=== PATIENT | female | born 1990 | race Caucasian/White ===

== ENCOUNTER → 2016-03-23 | Outpatient (CLI) | payer OTHER ==
[~2016-03-23] MED LIST: AMOXICILLIN500 M2 PO; ANAPROX DS550 MG PO; AUGMENTIN 875875 MG PO; BACTRIM DS 8001 TAB PO; CELEXA20 MG PO; CLARITIN10 MG PO; COLACE100 MG PO; DOCUSATE SODIU100 MG PO; FE-40325 MG PO; FEOSOL300 MG PO; FLONASE ALLERG9.9 ML NAS; IBUPROFEN600 MG PO; METROGEL0.751 VG; NORCO 325 MG-51 TAB PO; PREDNICOT20 MG PO; PREDNISONE10 MG PO; PRENATAL1 TA1 PO; PROAIR HFA0.09 MG/AC IH; ROBITUSSIN AC 110 ML PO; ROBITUSSIN AC,G30 ML PO; TOPIRAMATE25 M3 PO; TRAMADOL HCL50 MG PO; ULTRAM50 MG PO; VICODIN 5/500 505 MG PO; ZITHROMAX Z PA250 MG PO
== END | disposition home or self-care (01) ==
LOC: CT 03-21 10:00
DX: R51 Headache (principal)

== ENCOUNTER → 2016-09-12 | Outpatient (CLI) | payer OTHER ==
[2016-09-12 15:21] LABS: HEMATOCRIT 37.5 % (37.0-47.0); HEMOGLOBIN 12.5 g/dl (12.0-16.0); MEAN CELL VOLUME 92.4 fl (81.0-99.0); MEAN CORPUSCULAR HGB 30.8 pg (27.0-31.0); MEAN CORPUSCULAR HGB CONC 33.3 g/dl (33.0-37.0); MEAN PLATELET VOLUME 10.8 fl (9.6-12.3); RED BLOOD COUNT 4.06 10*6/uL (4.10-5.10); RED CELL DISTRI WIDTH 12.2 % (0-14.5); WHITE BLOOD COUNT 9.4 10*3/uL (4.8-10.8)
== END | disposition home or self-care (01) ==
LOC: LAB 15:08
PROVIDERS: Family Medicine
DX: Z34.90 Encounter for supervision of normal pregnancy, unspecified, unspecified trimester (principal)

== ENCOUNTER → 2016-09-15 | Outpatient (CLI) | payer OTHER ==
[~2016-09-15] MED LIST changes: +Motrin,Rufen800 MG PO; +VIBRAMYCIN100 MG PO
== END | disposition home or self-care (01) ==
LOC: LAB 13:21
DX: Z32.01 Encounter for pregnancy test, result positive (principal)

== ENCOUNTER 2016-09-16 20:28 | Emergency (ER) | payer OTHER ==
[~2016-09-16] VITALS: Ht 157.4 cm; Wt 65.8 kg
[~2016-09-16 20:28] MED LIST changes: -Motrin,Rufen800 MG PO; -VIBRAMYCIN100 MG PO
[2016-09-16 21:49] LABS: BASO % 0.4 % (0.0-1.0); EOS # 0.1 10*3/uL (0.0-0.4); EOS % 1.2 % (1.0-4.0); HEMATOCRIT 38.3 % (37.0-47.0); HEMOGLOBIN 12.4 g/dl (12.0-16.0); LYMPH # 1.3 10*3/uL (1.3-4.4); LYMPH % 11.8 % (27.0-41.0); MEAN CELL VOLUME 92.5 fl (81.0-99.0); MEAN CORPUSCULAR HGB CONC 32.4 g/dl (33.0-37.0); MEAN PLATELET VOLUME 11.2 fl (9.6-12.3); MONO # 1.1 10*3/uL (0.1-1.0); MONO % 10.2 % (3.0-9.0); NEUT # 8.5 10*3/uL (2.3-7.9); NEUT % 76.1 % (47.0-73.0); PLATELET COUNT AUTOMATED 204 10*3/uL (130-400); RED BLOOD COUNT 4.14 10*6/uL (4.10-5.10); RED CELL DISTRI WIDTH 12.3 % (0-14.5); WHITE BLOOD COUNT 11.2 10*3/uL (4.8-10.8)
[2016-09-16 22:06] LABS: ALBUMIN 3.8 gm/dl (3.1-4.5); ALKALINE PHOSPHATASE 52 U/L (45-117); BILIRUBIN, TOTAL 0.2 mg/dl (0.2-1.0); BUN 10 mg/dl (7-24); CARBON DIOXIDE 26 mmol/L (21-32); CHLORIDE 107 mmol/L (98-107); EST GLOM FILT AFRICAN AMERICAN > 60 ml/min; GLUCOSE 89 mg/dL (65-99); POTASSIUM 4.1 mmol/L (3.5-5.1); SGOT/AST 10 IU/L (3-35); SGPT/ALT 12 U/L (12-78); SODIUM 142 mmol/L (136-145); TOTAL PROTEIN 7.5 gm/dL (6.4-8.2)
[2016-09-16] MEDS ORDERED: VIBRAMYCIN100 MG PO (22:57)
[2016-09-16] MEDS ORDERED: Motrin,Rufen800 MG PO (22:57)
== END 2016-09-16 23:16 | disposition home or self-care (01) ==
LOC: ED 20:28
PROVIDERS: Registered Nurse
DX: J02.9 Acute pharyngitis, unspecified (principal); R51 Headache; F17.200 Nicotine dependence, unspecified, uncomplicated

== ENCOUNTER → 2016-09-26 | Outpatient (CLI) | payer OTHER ==
[~2016-09-26] MED LIST changes: +Motrin,Rufen800 MG PO; +VIBRAMYCIN100 MG PO
== END | disposition home or self-care (01) ==
LOC: LAB 14:43
DX: Z00.00 Encounter for general adult medical examination without abnormal findings (principal); Z87.59 Personal history of other complications of pregnancy, childbirth and the puerperium

== ENCOUNTER 2016-12-20 19:22 | Inpatient (IN) | payer OTHER ==
[~2016-12-20] VITALS: Ht 157.4 cm; Wt 69.4 kg
--- NOTE | ~2016-12-20 | DS ---
[place], [place] DISCHARGE SUMMARY [id number] UN[facility] #: [id number] ROOM: 512 DOCTOR: AYDEN WETZEL MD BIRTHDATE: [birth year] DOS: 12/25/2016 DISCHARGE DIAGNOSES: 1. Multifocal pneumonia, improving clinically with treatment. 2. ____ wheezing, treated and improving, accompanied by sinus tachycardia. 3. Nicotine smoke dependence. HOSPITAL COURSE: The patient was admitted by Dr. Brina Lam for increased shortness of breath, cough and she was found to have multifocal pneumonia on the chest x-ray. The patient was admitted and started on treatment with ceftriaxone and Levaquin. The patient was later seen by Dr. Rogers and the chest x-ray shows improvement. The patient is starting to feel better, although she still has some dyspnea on exertion and also develops sinus tachycardia when she is exerting. Dr. Rogers and Dr. Lam have cleared her for discharge and she will be discharged to home today on Levaquin and to be seen by her PCP in less than a week. The patient also asked to get a chest x-ray repeated to make sure that it has cleared in a week's time. Nicotine smoke dependence. The patient was started on nicotine patch and this will be continued at home. The patient has agreed to stop smoking cigarettes. Major depression, recurrent, mild, treated with Celexa. LABORATORY DATA: The patient's mycoplasma antibodies have been negative. CT angiogram showed multifocal bilateral patchy areas of airspace opacity, suspicious for multifocal pneumonia. No DVT. White cell count was elevated at 18,500 on admission and then reduced to 14,300. DISCHARGE MANAGEMENT: Levaquin 750 mg daily for a week, citalopram 20 mg a day, Xulane 150 mcg daily, guaifenesin 600 mg twice a day, nicotine patch 21 mg daily, topiramate 25 mg daily. FOLLOWUP: With his PCP on Monday, Dr. Roland Coles and follow up with Dr. 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 Repeat chest x-ray in 1 week. [place] DISCHARGE SUMMARY NAME: DIONTE BALTAZAR UNIT #: [id number] ROOM: 512 DOCTOR: AYDEN WETZEL MD BIRTHDATE: [birth year] AYDEN WETZEL MD CM:AYAZ [id number] [phone] ROLAND WETZEL MD 12/25/161925 interface
--- NOTE | ~2016-12-20 | CON ---
[place], [place] REPORT OF CONSULTATION NAME: DIONTE BALTAZAR [facility] #: [id number] UNIT #: [id number] ROOM: 512 DOCTOR: JASON ETIENNE MD BIRTHDATE: [birth year] DOS: 12/24/2016 PULMONARY CONSULTATION EVALUATION AND MANAGEMENT Consultation requested by the hospitalist services for assessment of pneumonia. The consulting doctor for this patient to Dr. Brina Lam ____ the hospital, which has been stated in the earlier portion beginning of the consultation. HISTORY OF PRESENT ILLNESS: A 26-year-old white female who has been admitted to the hospital on 12/21/2016. She presented to the Emergency Room at 12/20/2016, as the patient was reported having symptoms of coughing the patient with some shortness of breath occurring for the past 3 days. The cough is noted to worsen with significant increased shortness of breath. The patient was also noted some symptoms of pain, which is described retrosternal area, which was mild without any radiation. She denies any symptoms of wheezing. Denies symptoms of hemoptysis. She has been assessed in the Emergency Room for the patient for further assessment. The patient reported to the ER doctor that she has a termination for the patient at the [facility] about a week ago. REVIEW OF SYSTEMS: CONSTITUTIONAL: The patient was noted with symptoms of fever and chills, which has been still described intermittently. Denies any symptoms of abnormal weight loss. General weakness and fatigue were described. EYES: Denies any burning, discharge, redness or pain. EAR, NOSE, AND THROAT: No sore throat, hoarseness, otalgia, postnasal drainage or epistaxis, purulent nasal discharge. CARDIOVASCULAR: Denies anginal pain, edema, or pain of lower extremities. GASTROINTESTINAL: ____ Dysphagia, nausea, vomiting, diarrhea, abdominal pain, hematemesis, melena, or hematochezia. SKIN: Denies lesions or rashes. CENTRAL NERVOUS SYSTEM: No dizziness, headache, diplopia, syncopal episodes or migraines. Remaining systems were reviewed with the patient, they were noted all negative. PAST MEDICAL HISTORY: 1. Noted bronchial asthma since childhood, not treated at this time for any medication for the patient for many years. 2. Obesity. 3. History of general anxiety disorder. 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 She has one child and stated . Denies any history of alcohol use or illicit drug use. She has been smoking about a pack of cigarettes per week as per patient. PAST SURGICAL HISTORY: Essentially described. No major surgical intervention. FAMILY HISTORY: The patient's father was known with history of stroke. The mother has been noted history of diabetes. [place], [place] REPORT OF CONSULTATION NAME: DIONTE BALTAZAR UNIT #: [id number] ROOM: [facility] DOCTOR: JASON ETIENNE MD BIRTHDATE: [birth year] HOME MEDICATIONS: Noted use of citalopram and Topamax. PHYSICAL EXAMINATION: GENERAL: A 26-year-old female who has been noted currently awake and alert without any distress. Height of 5 feet 2 inches, weight of 153 pounds, BMI 28. VITAL SIGNS: Normal temperature, respiratory rate 18-20, heart rate 92-80, blood pressure 124/66-120/73. Pulse oxygen saturation of the patient on room air was 95% saturation. HEENT: Examination shows mild obesity. Neck was supple. Head was atraumatic. Nonicterus. NECK: Supple. CARDIOVASCULAR: S1, S2 audible. LUNGS: Noted decreased breath sounds are noted in the lungs bilaterally without any wheezing or crackles heard. ABDOMEN: Soft, nontender, bowel sounds present. CENTRAL NERVOUS SYSTEM: Cranial nerves 2-12 intact. No focal deficit. MUSCULOSKELETAL: No deformities. SKIN: No lesions or rashes. LABORATORY DATA: BMP on 12/20/2016 was noted with normal BUN and creatinine. CBC of the patient of 12/20/2016, WBC count 18.5, normal hemoglobin, hematocrit and platelet differential 79% segmented neutrophils. Lactic acid 01/20/2017 was 1.2 with D-dimer minimally elevated at 0.59. Influenza A and B, nasal washing antigens were negative. Blood culture from the 3rd of this month showed no bacterial growth. CBC of the patient of 12/23/2016 WBC count 14.3, hemoglobin 11.6, hematocrit 34.6, platelet count were normal. BMP of 12/23/2016, patient's BUN and creatinine for the patient's, CO2 20. The CT scan of the patient that was done for this patient with IV contrast. CTA protocol for the patient does not show evidence of pulmonary embolism. CT scan of the chest was personally reviewed. Review of the parenchymal window for the patient was noted with various areas of ground glass opacity for the patient infiltration, which is present mostly in the mid portion of the medially rather for this patient, sparing the periphery. Infiltration was noted essentially involving the right upper lobe, right middle lobe, right lower lobe, left lower lobe and sparing the lingula and left upper lobe. There was no mediastinal lymphadenopathy for this patient was noted as well. The chest x-ray of yesterday, the patient was noted essentially ____ pulmonary infiltration. IMPRESSION: The patient who had been currently admitted to the hospital. The patient noted with current symptoms, described to be consistent with acute pneumonia with fever and chills. The differential diagnosis of bacteria were since atypical etiology to be considered including possibility of acute eosinophilic pneumonia in the differential diagnosis. PLAN OF MANAGEMENT: History of chronic low grade nicotine abuse. PLAN OF TREATMENT: Abstinence from the tobacco were discussed with the patient. Continuation of current antibiotics for the patient as previously in progress. The patient is getting Levaquin high dose, which would suffice to cover typical and atypical organisms. I will be ordering the respiratory viral panel for this [place], [place] REPORT OF CONSULTATION NAME: DIONTE BALTAZAR UNIT #: [id number] ROOM: 512 DOCTOR: JASON ETIENNE MD BIRTHDATE: [birth year] patient as well. She was also getting the Solu-Medrol 20 mg b.i.d., which should treat for this patient the bronchospasm for the patient as well as the possibility of eosinophilic pneumonia, which has been considered in the differential. The mycoplasma IgM antibodies as well as urine for Legionella has been ordered as well. Further treatment changes to be made for this patient based on the progression of the illness. The patient was still complaining of symptoms of the night sweats and patient's fever. However, the fever does not seem to be documented by the nursing staff. Symptomatic management of that will be continued. Thanks for allowing me to participate in the care of this patient. JASON EWING MD CM:CONSTR:REPORT OF CONSULTATION 1407 12/25/16 0117 interface
--- NOTE | ~2016-12-20 | PR ---
[place], [place] PROGRESS NOTE NAME: DIONTE BALTAZAR [facility] #: [id number] UNIT #: [id number] ROOM: 512 DOCTOR: KAYLIN CHAVARRIA MD,JASON BIRTHDATE: [birth year] DOS: 12/25/2016 SUBJECTIVE: She has been noted significant reduction and improvement in symptoms, resolution of the chills and fever was noted. Denies symptoms of abdominal pain. Denies symptoms of hemoptysis. OBJECTIVE: VITAL SIGNS: Normal temperature, respiratory rate 20, heart rate 80, blood pressure 138/73. Pulse oxygen saturation on room air 96% saturation. HEENT: No acute change. NECK: Supple. CARDIOVASCULAR: S1, S2 audible. LUNGS: Noted without any wheezing or crackles at the present time. ABDOMEN: Soft, nontender. LABORATORY DATA: ESR was noted ____ IMPRESSION: The patient with resolution of the acute pneumonia noted bilateral patchy, improving with significant current medical management. PLAN OF TREATMENT: The patient could be discharged home on tapering dose of prednisone and oral Levaquin 500 mg p.o. daily for the next 7 days. Other additional treatment changes need to be made for this patient based on progression of the illness. Usual care, other supportive therapy, plan of management and care. Tobacco cessation was discussed with the patient. JASON EWING MD CM:PNTRANS [id number] JASON CHAVARRIA MD 12/26/16 0323 interface
--- NOTE | ~2016-12-20 | WRIGHTHP ---
[place], [place] PATIENT HISTORY AND PHYSICAL EXAM NAME: DIONTE BALTAZAR [facility] #: [id number] UNIT #: [id number] ROOM: 512 DOCTOR: JUAN REY MD BIRTHDATE: [birth year] DOS: 12/21/2016 HISTORY OF PRESENT ILLNESS: The patient is 26 years old. The patient says that over the last 3 days, she has had a cough and some slight shortness of breath. So, she decided to come in to the Emergency Room, evaluated and was found to be having multifocal pneumonia. The patient denies having any chest pains, palpitations. Does have some pain when she takes a deep breath and has had some low-grade temperature. 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 About a week ago, she underwent a medical termination of at [facility]. She has not had any complaints after that until about 3 days ago when she started having the cough. PAST MEDICAL HISTORY: Significant for history of mild asthma. The patient has not had any exacerbations recently. She used to suffer asthma as a child. She does not use the Rescue inhaler. MEDICATIONS: That she is on are citalopram 28, Topamax 30 mg daily and contraceptive patch. SOCIAL HISTORY: Smokes about one pack of cigarettes a day for the last 8 years. Denies using any alcohol. Lives at home. She has one child. Parents have medical problems. Father had history of stroke. Mother had diabetes. On examination, she has 2 siblings who are both healthy. PHYSICAL EXAMINATION: GENERAL: She is awake and alert and oriented. VITAL SIGNS: Blood pressure is 120/53, pulse 120, respirations 18, temperature 99.5. LUNGS: Diminished breath sounds. No wheezes, scattered rhonchi heard bilaterally. HEART: Regular. ABDOMEN: Obese, soft, nontender. EXTREMITIES: Without any edema. ASSESSMENT AND PLAN: 1. The patient who presents with cough and shortness of breath. A CT angiogram does not show any evidence of PE, but multifocal airspace disease with evidence of multifocal pneumonia is seen. Rapid flu was negative. The patient's white cell count was elevated 18.4. Blood cultures and sputum cultures will be sent and the patient is placed on IV antibiotics. 2. Sepsis, possibly from tachypnea, tachycardia. Again, cultures are being sent, slow IV hydration ordered. 3. History of asthma as a child. The patient has mild exacerbation. IV steroids and antibiotics have been ordered. [place], [place] PATIENT HISTORY AND PHYSICAL EXAM NAME: DIONTE BALTAZAR UNIT #: [id number] ROOM: [facility] DOCTOR: JUAN REY MD BIRTHDATE: [birth year] JUAN REY MD CM:HISPHYS:PATIENT HISTORY AND PHYSICAL EXAMINATION [id number] 00 JUAN REY MD 12/21/162199 interface
--- NOTE | ~2016-12-20 | PR ---
[place], [place] PROGRESS NOTE NAME: DIONTE BALTAZAR [facility] #: [id number] UNIT #: [id number] ROOM: 512 DOCTOR: JUAN REY MD BIRTHDATE: [birth year] DOS: SUBJECTIVE: The patient is feeling better. She was able to sleep without coughing. She did cough some sputum up this morning. Denies having any fever or chills. OBJECTIVE: VITAL SIGNS: Blood pressure is 122/64, pulse of 95, respirations 20, temperature 98. LUNGS: Diminished breath sounds. Few scattered wheezes heard bilaterally. HEART: Regular. ABDOMEN: Soft, scaphoid. EXTREMITIES: Without any edema. ASSESSMENT AND PLAN: 1. Multifocal pneumonia, on IV antibiotics. Legionella, mycoplasma testing is pending. I will repeat a CBC in the morning. 2. History of asthma with acute exacerbation. The patient is on IV steroids and improving slowly. Hopefully, the patient can be discharged in the morning. JUAN REY MD CM:PNTRANS [id number] JUAN REY MD 12/22/16 1207 interface
--- NOTE | ~2016-12-20 | PR ---
[place], [place] PROGRESS NOTE NAME: DIONTE BALTAZAR [facility] #: [id number] UNIT #: [id number] ROOM: 512 DOCTOR: AYDEN WETZEL MD BIRTHDATE: [birth year] DOS: 12/23/2016 SUBJECTIVE: The patient is still complaining of dyspnea on exertion, shortness of breath and wheezing. OBJECTIVE: VITAL SIGNS: Blood pressure 107/64, heart rate 94 beats per minute, breathing 20 times per minute, temperature 98 degrees Fahrenheit. GENERAL APPEARANCE: The patient is alert and oriented x 3, in no visible distress. HEENT AND NECK: Exam within normal limits. CARDIOVASCULAR SYSTEM: Heart rate is regular in rate and rhythm. S1 and S2 normally audible. LUNGS: The patient has some rhonchi in her lungs, which are scattered. ABDOMEN: Soft, nontender. No obvious organomegaly. Bowel sounds are present. EXTREMITIES: Without significant cyanosis or edema. IMPRESSION: The patient with slowly resolving multifocal pneumonia, being treated with Levaquin and ceftriaxone. The patient still has dyspnea on exertion and I will get an opinion from Dr. Rogers. Legionella and mycoplasma antibody testing still pending. Asthmatic wheezing which is being treated with corticosteroids, oxygen, bronchodilators. AYDEN WETZEL MD CM:PNTRANS [phone] AYDEN WETZEL MD 12/24/16 0323 interface
--- NOTE | ~2016-12-20 | PR ---
[place], [place] PROGRESS NOTE [id number] UNIT #: [id number] ROOM: 512 DOCTOR: AYDEN WETZEL MD BIRTHDATE: [birth year] DOS: 12/24/2016 SUBJECTIVE: The patient is still having some wheezing and shortness of breath episodes, especially with exertion. The patient requests overall improving. The patient is requesting nicotine patch. OBJECTIVE: VITAL SIGNS: Blood pressure 116/54, heart rate 81 beats per minute, breathing 18 times per minute and temperature 98.5 degrees Fahrenheit. GENERAL APPEARANCE: The patient is alert and oriented x 3, in no visible distress. HEENT AND NECK: Exam within normal limits. CARDIOVASCULAR SYSTEM: Heart rate is regular in rate and rhythm. S1 and S2 normally audible. LUNGS: Clear to auscultation. ABDOMEN: Soft, nontender. No obvious organomegaly. Bowel sounds are present. EXTREMITIES: Without significant cyanosis or edema. IMPRESSION AND PLAN: 1. The patient with multifocal pneumonia, possibly mycoplasma. Test results are still pending, but the patient continues to improve. 2. Asthmatoid wheezing, which is being treated with corticosteroids, oxygen and bronchodilators. 3. Nicotine smoke dependence. The patient is requesting nicotine patch, which was started and she was encouraged to stop completely. AYDEN WETZEL MD CM:PNTRANS [phone] AYDEN WETZEL MD 12/24/16 2233 interface
[2016-12-20 19:35] VITALS: BP 140/78
[2016-12-20 19:51] LABS: HEMOGLOBIN 12.8 g/dl (12.0-16.0); MEAN CELL VOLUME 90.5 fl (81.0-99.0); MEAN CORPUSCULAR HGB 30.5 pg (27.0-31.0); MEAN CORPUSCULAR HGB CONC 33.7 g/dl (33.0-37.0); MEAN PLATELET VOLUME 10.9 fl (9.6-12.3); PLATELET COUNT AUTOMATED 269 10*3/uL (130-400); RED CELL DISTRI WIDTH 12.3 % (0-14.5); WHITE BLOOD COUNT 18.5 10*3/uL (4.8-10.8)
[2016-12-20 20:02] LABS: BUN 6 mg/dl (7-24); CHLORIDE 108 mmol/L (98-107); CREATININE 0.82 mg/dL (0.55-1.02); POTASSIUM 3.6 mmol/L (3.5-5.1); SODIUM 139 mmol/L (136-145)
[2016-12-20 20:11] LABS: BASOPHILS 1 % (0-1); PLATELET SUFFICIENCY NORMAL (NORMAL); POLYCHROMASIA SLIGHT; TOTAL CELLS COUNTED 100 #CELLS
--- NOTE | 2016-12-20 20:29 | NUR ---
INFORMED PATIENT OF POSITIVE TEST. PATIENT STATES THAT SHE JUST HAD AN LAST WEEK.
[2016-12-21 01:32] VITALS: BP 125/49
--- NOTE | 2016-12-21 02:45 | NUR ---
Time: 244 A 26 year old FEMALE admitted to 5E under services of DR. KRISSY FORTUNE,JUAN. Pt. arrived via bed from ER. Chief complaint: COUGH. LORENZO C[place]
[2016-12-21] MEDS ORDERED: CELEXA20 MG PO (02:59)
[2016-12-21 03:00] VITALS: BP 120/53
--- NOTE | 2016-12-21 03:09 | NUR ---
SPOKE WITH AT THIS TIME. NEW ORDERS RECEIVED FOR IV SOLUMEDROL 30 MG BID, DUONEBS Q4H STRAIGHT, IV ROCEPHIN 1G DAILY, AND REGULAR DIET.
[2016-12-21] MEDS ORDERED: TOPAMAX25 M3 PO (03:12)
[2016-12-21] MEDS ORDERED: XULANE PATCH1 EACH TD (03:13)
--- NOTE | 2016-12-21 03:14 | NUR ---
MED REC UP TO DATE PER PT RECALL
--- NOTE | 2016-12-21 03:49 | NUR ---
NOTIFIED OF PATIENT'S HR SUSTAINING IN THE 130s. INSTRUCTED TO CHANGE DUONEB TREATMENTS TO XOPENEX 0.63MG Q8H STRAIGHT.
[2016-12-21 08:00] VITALS: BP 112/62
--- NOTE | 2016-12-21 08:30 | NUR ---
Back Wedger in to talk to patient. Patient states lives at HOME with HER MOTHER IN LAW. There are 12 steps in the home. Physician: DR ALONSO Pharmacy: [facility] [place] Home health services: NONE Patient's level of ADLs: INDEPENDENT Patient has working utilities: YES DME: NONE Follow-up physician's appointment after d/c: PREFERS TO MAKE HER OWN APPT Does patient want to access PORTAL?: Discharge plan HOME. MAGALY KIRK
[2016-12-21 12:00] VITALS: BP 104/49
[2016-12-21 16:00] VITALS: BP 110/60
[2016-12-21 20:28] VITALS: BP 119/60
--- NOTE | 2016-12-21 21:48 | NUR ---
MEDICATED WITH TYLENOL FOR C/O BACK PAIN.
--- NOTE | 2016-12-21 22:52 | NUR ---
NO FURTHER C/O BACK PAIN AT THIS TIME; TYLENOL EFFECTIVE.
[2016-12-22] VITALS: BP 120/64
[2016-12-22 08:00] VITALS: BP 122/64
--- NOTE | 2016-12-22 08:03 | NUR ---
Medicated with tylenol per prn order for complaints of back pain.
--- NOTE | 2016-12-22 09:00 | NUR ---
States that tylenol was effective.
[2016-12-22 12:00] VITALS: BP 127/61
[2016-12-22 16:00] VITALS: BP 115/45
--- NOTE | 2016-12-22 19:55 | NUR ---
SITTING UP IN BED WITH HOB ELEVATED. LUNGS WITH RALES & WHEEZES NOTED; PT. HAS A FREQUENT HARSH CROUPY COUGH. PT. STATES THAT HER HEP LOCK IS BOTHER HER; HEP LOCK LEAKING. WILL RESTART.
[2016-12-22 20:00] VITALS: BP 129/83
--- NOTE | 2016-12-22 20:00 | NUR ---
IV started right forearm with #22 protective cath after 2 attempts. Site prepped with Chloroprep. Sterile dressing applied. Patient tolerated procedure well. IV infusing at cc/hr. LAUREN KEATING
--- NOTE | 2016-12-22 22:00 | NUR ---
RESTING IN BED. VOICES NO C/O AT THIS TIME. CALL LIGHT WITHIN REACH.
[2016-12-23] VITALS: BP 115/68
[2016-12-23 06:19] LABS: BASO % 0.1 % (0.0-1.0); HEMATOCRIT 34.6 % (37.0-47.0); HEMOGLOBIN 11.6 g/dl (12.0-16.0); LYMPH # 1.5 10*3/uL (1.3-4.4); LYMPH % 10.6 % (27.0-41.0); MEAN CELL VOLUME 91.3 fl (81.0-99.0); MEAN CORPUSCULAR HGB 30.6 pg (27.0-31.0); MEAN CORPUSCULAR HGB CONC 33.5 g/dl (33.0-37.0); MONO # 0.8 10*3/uL (0.1-1.0); MONO % 5.8 % (3.0-9.0); NEUT # 11.9 10*3/uL (2.3-7.9); NEUT % 82.7 % (47.0-73.0); PLATELET COUNT AUTOMATED 299 10*3/uL (130-400); RED BLOOD COUNT 3.79 10*6/uL (4.10-5.10); RED CELL DISTRI WIDTH 12.3 % (0-14.5); WHITE BLOOD COUNT 14.3 10*3/uL (4.8-10.8)
[2016-12-23 06:49] LABS: BUN 8 mg/dl (7-24); CHLORIDE 109 mmol/L (98-107); CREATININE 0.69 mg/dL (0.55-1.02); POTASSIUM 4.3 mmol/L (3.5-5.1); SODIUM 137 mmol/L (136-145)
[2016-12-23 08:00] VITALS: BP 113/45
--- NOTE | 2016-12-23 11:24 | NUR ---
Shift chart check completed.
[2016-12-23 12:00] VITALS: BP 120/73
[2016-12-23 16:00] VITALS: BP 107/64
[2016-12-23 16:10] LABS: MYCOPLASMA PNEUMONIAE IGG <100 U/mL (0-99); MYCOPLASMA PNEUMONIAE IGM <770 U/mL (0-769)
--- NOTE | 2016-12-23 19:30 | NUR ---
ASSUMED CARE OF PT AT THIS TIME, RESPS EASY AND NONLABORED WITH NO S/S OF DISTRESS CALL LIGHT WITH IN REACH
[2016-12-23 20:00] VITALS: BP 105/55
--- NOTE | 2016-12-23 20:11 | NUR ---
CALL PLACED TO CELL PHONE FOR NEW CONSULT FROM
[2016-12-24] VITALS: BP 115/60
--- NOTE | 2016-12-24 02:01 | NUR ---
PT RESTING IN BED WITH EYES CLOSED RESPS EASY AND NONLABORED WITH NO S/S OF DISTRESS CALL LIGHT WITH IN REACH
[2016-12-24 08:00] VITALS: BP 124/66
--- NOTE | 2016-12-24 08:00 | NUR ---
ASSESSMENT COMPLETE, PT STATES SHE FEELS "MUCH BETTER THIS MORNING" STATES SHORTNESS OF BREATH HAS IMPROVED FROM YESTERDAY. SEE ASSESSMETN DISCUSS WITH DENNY EWING CONSULT TO SEE PATIENT TODAY. PT WITHOUT NEEDS/QUESTIONS AT THIS TIME. WILL CONTINUE TO MONITOR.
--- NOTE | 2016-12-24 09:39 | NUR ---
IV RIGHT FA INFILTRATED, REMOVED NEW IV STARTED LEFT AC. PT TOLERATED FAIR. GOOD BLOOD RETURN, FLUSHES EASILY.
[2016-12-24 12:00] VITALS: BP 113/62
[2016-12-24 16:00] VITALS: BP 116/54
--- NOTE | 2016-12-24 19:30 | NUR ---
ASSUMED CARE OF PT AT THIS TIME, RESPS EASY AND NONLABORED WITH NO S/S OF DISTRESS CALL LIGHT WITH IN REACH
[2016-12-24 20:00] VITALS: BP 114/58
[2016-12-25] VITALS: BP 129/76
--- NOTE | 2016-12-25 04:01 | NUR ---
PT RESTING IN BED WITH EYES CLOSED RESPS EASY AND NONLABORED WITH NO S/S OF DISTRESS CALL LIGHT WITH IN REACH
[2016-12-25 08:00] VITALS: BP 138/73
--- NOTE | 2016-12-25 10:12 | NUR ---
DR KAYLIN ARANDA, STATED OK FOR PT TO BE D/C TODAY.
[2016-12-25 12:00] VITALS: BP 129/69
[2016-12-25] MEDS ORDERED: PREDNISONE10 MG PO (12:08)
[2016-12-25] MEDS ORDERED: LEVOFLOXACIN500 MG PO (12:08)
[2016-12-25 16:00] VITALS: BP 116/70
[2016-12-25] MEDS ORDERED: NICODERM T (17:17)
[2016-12-25] MEDS ORDERED: LEVAQUIN750 M1 PO (17:17)
--- NOTE | 2016-12-25 17:18 | NUR ---
DR WETZEL ROUNDED AND ORDERS RECIEVED.
--- NOTE | 2016-12-25 17:52 | NUR ---
Discharge instructions reviewed with patient/family. Patient receptive and verbalizes understanding. Follow-up care arranged. Written instructions given to patient/family.TELEMETRY ACCOUNTED FOR AND HEPLOCK REMOVED. CYNDY STACK
[2016-12-26 15:07] LABS: MYCOPLASMA PNEUMONIAE IGG <100 U/mL (0-99); MYCOPLASMA PNEUMONIAE IGM <770 U/mL (0-769)
[2016-12-28 01:04] LABS: ADENOVIRUS Negative (Negative); INFLUENZA A Negative (Negative); INFLUENZA B Negative (Negative); METAPNEUMOVIRUS Negative (Negative); PARAINFLUENZA 1 Negative (Negative); PARAINFLUENZA 2 Negative (Negative); PARAINFLUENZA 3 Negative (Negative); RHINOVIRUS Positive (Negative); RSV A Negative (Negative); RSV B Negative (Negative)
== END 2016-12-25 17:53 | disposition home or self-care (01) | DRG 871 ==
LOC: ED 19:22 → EDHOLD 12-21 02:08 → 5E 12-21 02:08
PROVIDERS: Emergency Medicine Emergency Medical Services; Internal Medicine Critical Care Medicine; ADMIT Internal Medicine
DX: A41.9 Sepsis, unspecified organism (principal); J18.1 Lobar pneumonia, unspecified organism; J45.901 Unspecified asthma with (acute) exacerbation; F33.0 Major depressive disorder, recurrent, mild; F17.210 Nicotine dependence, cigarettes, uncomplicated; F41.1 Generalized anxiety disorder; E66.9 Obesity, unspecified; Z71.6 Tobacco abuse counseling; Z79.899 Other long term (current) drug therapy; Z87.440 Personal history of urinary (tract) infections; Z82.49 Family history of ischemic heart disease and other diseases of the circulatory system; Z80.9 Family history of malignant neoplasm, unspecified; Z82.3 Family history of stroke; Z68.28 Body mass index [BMI] 28.0-28.9, adult

== ENCOUNTER → 2017-05-02 | Outpatient (CLI) | payer OTHER ==
[~2017-05-02] MED LIST changes: +LEVAQUIN750 M1 PO; +LEVOFLOXACIN500 MG PO; +NICODERM T; +TOPAMAX25 M3 PO; +XULANE PATCH1 EACH TD
[2017-05-02 11:29] LABS: HEMOGLOBIN 13.8 g/dl (12.0-16.0); MEAN CORPUSCULAR HGB 29.2 pg (27.0-31.0); MEAN CORPUSCULAR HGB CONC 32.9 g/dl (33.0-37.0); MEAN PLATELET VOLUME 11.4 fl (9.6-12.3); RED BLOOD COUNT 4.72 10*6/uL (4.10-5.10); RED CELL DISTRI WIDTH 13.1 % (0-14.5)
[2017-05-02 11:46] LABS: ALBUMIN 4.1 gm/dl (3.1-4.5); ALKALINE PHOSPHATASE 55 U/L (45-117); BUN 12 mg/dl (7-24); CHLORIDE 103 mmol/L (98-107); CREATININE 0.79 mg/dL (0.55-1.02); POTASSIUM 3.8 mmol/L (3.5-5.1); SGOT/AST 12 IU/L (3-35); SGPT/ALT 19 U/L (12-78); SODIUM 140 mmol/L (136-145)
[2017-05-03 12:05] LABS: HEPATITIS B SURFACE AB 006395 Reactive (.); HEPATITIS B SURFACE AG Negative (Negative); HEPATITIS C VIRUS ANTIBODY <0.1 s/co (0.0-0.9)
[2017-05-03 17:10] LABS: RUBEOLA AB IGG 096560 >300.0 AU/mL (Immune >29.9); VARICELLA-ZOSTER IGG 096206 973 index (Immune >165)
== END | disposition home or self-care (01) ==
LOC: LAB 10:41
PROVIDERS: Family Medicine
DX: Z02.0 Encounter for examination for admission to educational institution (principal)

== ENCOUNTER → 2019-02-02 | Outpatient (CLI) | payer SELFPAY ==
[~2019-02-02] MED LIST changes: +CEPHALEXIN500 M1 PO; +SEPTDS PO
== END | disposition home or self-care (01) ==
LOC: RAD 09:53
DX: R05 Cough (principal); R06.02 Shortness of breath; F17.200 Nicotine dependence, unspecified, uncomplicated

== ENCOUNTER 2019-05-09 18:58 | Emergency (ER) | payer OTHER ==
[~2019-05-09] VITALS: Ht 157.4 cm; Wt 72.6 kg
[2019-05-09 19:55] LABS: BASO # 0.1 10*3/uL (0.0-0.1); BASO % 0.6 % (0.0-1.0); EOS # 0.2 10*3/uL (0.0-0.4); EOS % 1.5 % (1.0-4.0); HEMATOCRIT 38.6 % (37.0-47.0); HEMOGLOBIN 12.5 g/dl (12.0-16.0); LYMPH # 3.7 10*3/uL (1.3-4.4); LYMPH % 26.6 % (27.0-41.0); MEAN CELL VOLUME 92.6 fl (81.0-99.0); MEAN CORPUSCULAR HGB CONC 32.4 g/dl (33.0-37.0); MEAN PLATELET VOLUME 11.1 fl (9.6-12.3); MONO # 1.3 10*3/uL (0.1-1.0); NEUT # 8.5 10*3/uL (2.3-7.9); NEUT % 61.7 % (47.0-73.0); PLATELET COUNT AUTOMATED 265 10*3/uL (130-400); RED BLOOD COUNT 4.17 10*6/uL (4.10-5.10); RED CELL DISTRI WIDTH 12.4 % (0-14.5); WHITE BLOOD COUNT 13.8 10*3/uL (4.8-10.8)
[2019-05-09 20:11] LABS: ALBUMIN 4.1 gm/dl (3.1-4.5); ALKALINE PHOSPHATASE 64 U/L (45-117); BUN 17 mg/dl (7-24); CHLORIDE 108 mmol/L (98-107); CREATININE 0.79 mg/dL (0.55-1.02); POTASSIUM 3.8 mmol/L (3.5-5.1); SGOT/AST 9 IU/L (3-35); SGPT/ALT 17 U/L (12-78); SODIUM 137 mmol/L (136-145); TOTAL PROTEIN 7.7 gm/dL (6.4-8.2)
[2019-05-09 20:46] LABS: BILIRUBIN NEGATIVE (NEGATIVE); BLOOD NEGATIVE (NEGATIVE); CLARITY CLEAR (CLEAR); COLOR YELLOW (YELLOW); GLUCOSE NEGATIVE (NEGATIVE); KETONE NEGATIVE (NEGATIVE); LEUKO ESTERASE NEGATIVE (NEGATIVE); NITRITE NEGATIVE (NEGATIVE); SPECIFIC GRAVITY 1.005 (1.005-1.030); UROBILINOGEN 0.2 E.U./dl (0.2-1.0)
[2019-05-09 20:47] LABS: EPITHELIAL CELLS 0-2
== END 2019-05-09 20:55 | disposition home or self-care (01) ==
LOC: ED 18:58
PROVIDERS: Nurse Practitioner Family
DX: O26.891 Other specified pregnancy related conditions, first trimester (principal); R10.30 Lower abdominal pain, unspecified; O10.911 Unspecified pre-existing hypertension complicating pregnancy, first trimester; O99.511 Diseases of the respiratory system complicating pregnancy, first trimester; J45.909 Unspecified asthma, uncomplicated; Z3A.01 Less than 8 weeks gestation of pregnancy; Z79.2 Long term (current) use of antibiotics; Z79.899 Other long term (current) drug therapy

== ENCOUNTER → 2021-05-12 | Outpatient (CLI) | payer OTHER ==
[~2021-05-12] MED LIST changes: +PREDNISONE10 M1 PO
[2021-05-12 13:58] LABS: MEAN CELL VOLUME 89.1 fl (81.0-99.0); MEAN CORPUSCULAR HGB 28.7 pg (27.0-31.0); MEAN CORPUSCULAR HGB CONC 32.2 g/dl (33.0-37.0); MEAN PLATELET VOLUME 11.3 fl (9.6-12.3); RED BLOOD COUNT 4.6 10*6/uL (4.10-5.10); RED CELL DISTRI WIDTH 12.1 % (0-14.5); WHITE BLOOD COUNT 10.2 10*3/uL (4.8-10.8)
[2021-05-12 14:11] LABS: ALKALINE PHOSPHATASE 60 U/L (45-117); BUN 9 mg/dl (7-24); CHLORIDE 109 mmol/L (98-107); CHOLESTEROL 161 mg/dL (<200); CREATININE 0.82 mg/dL (0.55-1.02); LDL CHOLESTEROL 85 mg/dL (9-159); SGOT/AST 11 IU/L (3-35); SGPT/ALT 18 U/L (12-78); SODIUM 140 mmol/L (136-145); TOTAL PROTEIN 8.2 gm/dL (6.4-8.2); TRIGLYCERIDES 54 mg/dl (<150)
== END | disposition home or self-care (01) ==
LOC: LAB 13:37
PROVIDERS: ATTEND Family Medicine
DX: O92.6 Galactorrhea (principal); R60.0 Localized edema; R51.9 Headache, unspecified

== ENCOUNTER → 2021-05-13 | Outpatient (CLI) | payer OTHER ==
[~2021-05-13] MED LIST changes: -PREDNISONE10 M1 PO
== END | disposition home or self-care (01) ==
LOC: LAB 01:11
PROVIDERS: ATTEND Family Medicine
DX: O92.6 Galactorrhea (principal); R60.0 Localized edema; R51.9 Headache, unspecified; M79.10 Myalgia, unspecified site

== ENCOUNTER 2021-05-23 17:59 | Emergency (ER) | payer OTHER ==
[2021-05-23 18:36] LABS: BASO # 0.1 10*3/uL (0.0-0.1); BASO % 0.7 % (0.0-1.0); EOS # 0.5 10*3/uL (0.0-0.4); EOS % 4.2 % (1.0-4.0); HEMATOCRIT 38.7 % (37.0-47.0); LYMPH % 34.8 % (27.0-41.0); MEAN CORPUSCULAR HGB 29.3 pg (27.0-31.0); MEAN CORPUSCULAR HGB CONC 32.6 g/dl (33.0-37.0); MEAN PLATELET VOLUME 11.6 fl (9.6-12.3); MONO % 8.8 % (3.0-9.0); NEUT # 5.9 10*3/uL (2.3-7.9); NEUT % 51.2 % (47.0-73.0); PLATELET COUNT AUTOMATED 249 10*3/uL (130-400); RED CELL DISTRI WIDTH 12.6 % (0-14.5); WHITE BLOOD COUNT 11.5 10*3/uL (4.8-10.8)
[2021-05-23 18:49] LABS: BUN 12 mg/dl (7-24); CHLORIDE 113 mmol/L (98-107); CREATININE 0.91 mg/dL (0.55-1.02); POTASSIUM 3.8 mmol/L (3.5-5.1); SODIUM 143 mmol/L (136-145)
[2021-05-23] MEDS ORDERED: PREDNISONE10 M1 PO (21:07)
== END 2021-05-23 21:31 | disposition home or self-care (01) ==
LOC: ED 17:59
PROVIDERS: Emergency Medicine
DX: J45.901 Unspecified asthma with (acute) exacerbation (principal); Z79.899 Other long term (current) drug therapy

== ENCOUNTER 2021-08-24 16:11 | Emergency (ER) | payer OTHER ==
[~2021-08-24 16:11] MED LIST changes: +PREDNISONE10 M1 PO
[2021-08-24] MEDS ORDERED: SERTRALINE HYDR25 MG PO (16:47)
[2021-08-24 17:12] LABS: BASO # 0.1 10*3/uL (0.0-0.1); BASO % 0.6 % (0.0-1.0); EOS # 0.3 10*3/uL (0.0-0.4); EOS % 2.9 % (1.0-4.0); HEMATOCRIT 37.5 % (37.0-47.0); LYMPH # 2.4 10*3/uL (1.3-4.4); LYMPH % 22.2 % (27.0-41.0); MEAN CELL VOLUME 88.7 fl (81.0-99.0); MEAN CORPUSCULAR HGB 28.4 pg (27.0-31.0); MEAN PLATELET VOLUME 11.3 fl (9.6-12.3); MONO # 1.2 10*3/uL (0.1-1.0); MONO % 11.5 % (3.0-9.0); NEUT # 6.7 10*3/uL (2.3-7.9); NEUT % 62.4 % (47.0-73.0); PLATELET COUNT AUTOMATED 245 10*3/uL (130-400); RED BLOOD COUNT 4.23 10*6/uL (4.10-5.10); RED CELL DISTRI WIDTH 13.2 % (0-14.5); WHITE BLOOD COUNT 10.8 10*3/uL (4.8-10.8)
[2021-08-24 17:29] LABS: ALKALINE PHOSPHATASE 59 U/L (45-117); BUN 10 mg/dl (7-24); CHLORIDE 107 mmol/L (98-107); CREATININE 0.83 mg/dL (0.55-1.02); POTASSIUM 3.9 mmol/L (3.5-5.1); SGOT/AST 10 IU/L (3-35); SGPT/ALT 16 U/L (12-78); SODIUM 138 mmol/L (136-145); TOTAL PROTEIN 7.5 gm/dL (6.4-8.2)
[2021-08-24] MEDS ORDERED: AMOXICILLIN875 MG PO (17:49)
== END 2021-08-24 17:51 | disposition home or self-care (01) ==
LOC: ED 16:11
PROVIDERS: Nurse Practitioner Family
DX: J02.9 Acute pharyngitis, unspecified (principal); Z20.822 Contact with and (suspected) exposure to COVID-19; Z79.899 Other long term (current) drug therapy; F17.200 Nicotine dependence, unspecified, uncomplicated

== ENCOUNTER → 2022-02-04 | Outpatient (CLI) | payer OTHER ==
[~2022-02-04] MED LIST changes: +AMOXICILLIN875 MG PO; +SERTRALINE HYDR25 MG PO
== END ==
LOC: RAD 13:15
PROVIDERS: ATTEND Family Medicine
DX: R06.02 Shortness of breath (principal); J45.909 Unspecified asthma, uncomplicated; Z87.891 Personal history of nicotine dependence

== ENCOUNTER → 2022-05-27 | Outpatient (CLI) | payer OTHER ==
[2022-05-27 12:01] LABS: HEMATOCRIT 43.2 % (37.0-47.0); MEAN CELL VOLUME 93.7 fl (81.0-99.0); MEAN CORPUSCULAR HGB 29.9 pg (27.0-31.0); MEAN CORPUSCULAR HGB CONC 31.9 g/dl (33.0-37.0); MEAN PLATELET VOLUME 10.9 fl (9.6-12.3); RED BLOOD COUNT 4.61 10*6/uL (4.10-5.10); RED CELL DISTRI WIDTH 12.7 % (0-14.5); WHITE BLOOD COUNT 11.1 10*3/uL (4.8-10.8)
[2022-05-27 12:17] LABS: ALKALINE PHOSPHATASE 59 U/L (46-116); BUN 12 mg/dl (9-23); CHLORIDE 107 mmol/L (98-107); POTASSIUM 4.3 mmol/L (3.4-5.1); SGPT/ALT 10 U/L (10-49); TOTAL PROTEIN 7.5 gm/dL (6.0-8.0)
[2022-05-28 06:08] LABS: HBSAG Negative (Negative); HEP B CORE AB, IGM Negative (Negative); HEPATITIS C ANTIBODY Non Reactive (Non Reactive)
== END | disposition home or self-care (01) ==
LOC: LAB 11:41
PROVIDERS: ATTEND Family Medicine
DX: E74.00 Glycogen storage disease, unspecified (principal); R51.9 Headache, unspecified; F41.1 Generalized anxiety disorder

== ENCOUNTER 2022-07-27 01:00 | Emergency (ER) | payer OTHER ==
[~2022-07-27] VITALS: Ht 157.4 cm; Wt 74.4 kg
[2022-07-27] MEDS ORDERED: PREDNISONE20 M1 PO (02:55)
== END 2022-07-27 02:50 | disposition home or self-care (01) ==
LOC: ED 01:00
DX: J06.9 Acute upper respiratory infection, unspecified (principal); I10 Essential (primary) hypertension; J45.909 Unspecified asthma, uncomplicated; Z90.11 Acquired absence of right breast and nipple

== ENCOUNTER 2022-09-26 14:14 | Emergency (ER) | payer OTHER ==
[~2022-09-26] VITALS: Wt 77.1 kg
[~2022-09-26 14:14] MED LIST changes: +PREDNISONE20 M1 PO
[2022-09-26 16:57] LABS: BASO # 0.1 10*3/uL (0.0-0.1); BASO % 0.6 % (0.0-1.0); EOS # 0.3 10*3/uL (0.0-0.4); EOS % 2.2 % (1.0-4.0); HEMATOCRIT 39.4 % (37.0-47.0); LYMPH # 2.8 10*3/uL (1.3-4.4); MEAN CORPUSCULAR HGB 29.9 pg (27.0-31.0); MEAN CORPUSCULAR HGB CONC 33.2 g/dl (33.0-37.0); MEAN PLATELET VOLUME 10.7 fl (9.6-12.3); MONO # 0.9 10*3/uL (0.1-1.0); MONO % 7.3 % (3.0-9.0); NEUT # 8.2 10*3/uL (2.3-7.9); NEUT % 66.5 % (47.0-73.0); PLATELET COUNT AUTOMATED 259 10*3/uL (130-400); RED BLOOD COUNT 4.38 10*6/uL (4.10-5.10); RED CELL DISTRI WIDTH 12.9 % (0-14.5); WHITE BLOOD COUNT 12.3 10*3/uL (4.8-10.8)
[2022-09-26 17:10] LABS: BILIRUBIN Negative (Negative); BLOOD 2+ (Negative); CLARITY Clear (Clear); COLOR Yellow (Yellow); GLUCOSE Negative (Negative); KETONE Negative (Negative); LEUKO ESTERASE Negative (Negative); NITRITE Negative (Negative)
[2022-09-26 17:27] LABS: BACTERIA 2+; EPITHELIAL CELLS 0-2
[2022-09-26 17:31] LABS: ALKALINE PHOSPHATASE 59 U/L (46-116); BUN 8 mg/dl (9-23); CHLORIDE 109 mmol/L (98-107); LIPASE 61 U/L (12-53); POTASSIUM 4.3 mmol/L (3.4-5.1); SGPT/ALT 8 U/L (10-49)
== END 2022-09-26 19:08 | disposition home or self-care (01) ==
LOC: ED 14:14
PROVIDERS: Emergency Medicine
DX: O20.0 Threatened abortion (principal); Z79.2 Long term (current) use of antibiotics; Z79.899 Other long term (current) drug therapy; Z3A.01 Less than 8 weeks gestation of pregnancy

== ENCOUNTER → 2022-09-28 | Outpatient (CLI) | payer OTHER | END | disposition home or self-care (01) | LOC: LAB 14:42 | PROVIDERS: ATTEND Family Medicine | DX: Z32.01 Encounter for pregnancy test, result positive (principal) ==

== ENCOUNTER → 2022-09-30 | Outpatient (CLI) | payer OTHER | END | disposition home or self-care (01) | LOC: LAB 13:53 | PROVIDERS: ATTEND Family Medicine | DX: Z32.01 Encounter for pregnancy test, result positive (principal) ==

== ENCOUNTER 2023-02-19 16:45 | Emergency (ER) | payer OTHER ==
[~2023-02-19] VITALS: Wt 77.1 kg
[2023-02-19 17:22] LABS: BASO # 0.1 10*3/uL (0.0-0.1); BASO % 0.9 % (0.0-1.0); EOS # 0.4 10*3/uL (0.0-0.4); EOS % 4.1 % (1.0-4.0); HEMATOCRIT 42.5 % (37.0-47.0); LYMPH # 3.3 10*3/uL (1.3-4.4); LYMPH % 33.3 % (27.0-41.0); MEAN CELL VOLUME 91.8 fl (81.0-99.0); MEAN CORPUSCULAR HGB CONC 32.7 g/dl (33.0-37.0); MEAN PLATELET VOLUME 11.3 fl (9.6-12.3); MONO # 0.7 10*3/uL (0.1-1.0); MONO % 6.9 % (3.0-9.0); NEUT # 5.3 10*3/uL (2.3-7.9); NEUT % 54.4 % (47.0-73.0); PLATELET COUNT AUTOMATED 240 10*3/uL (130-400); RED BLOOD COUNT 4.63 10*6/uL (4.10-5.10); RED CELL DISTRI WIDTH 12.3 % (0-14.5); WHITE BLOOD COUNT 9.8 10*3/uL (4.8-10.8)
[2023-02-19 17:44] LABS: ALKALINE PHOSPHATASE 65 U/L (46-116); BUN 6 mg/dl (9-23); CHLORIDE 112 mmol/L (98-107); POTASSIUM 3.8 mmol/L (3.4-5.1); SGPT/ALT 11 U/L (5-49); TOTAL PROTEIN 7.2 gm/dL (6.0-8.0)
[2023-02-19] MEDS ORDERED: PREDNISONE20 M1 PO (18:24)
[2023-02-19] MEDS ORDERED: SYMB80 INH (18:24)
[2023-02-19] MEDS ORDERED: PROVENTIL HFA6.7 GM INH (18:24)
== END 2023-02-19 18:40 | disposition home or self-care (01) ==
LOC: ED 16:45
PROVIDERS: Emergency Medicine
DX: J45.901 Unspecified asthma with (acute) exacerbation (principal); I10 Essential (primary) hypertension; Z90.11 Acquired absence of right breast and nipple; F17.290 Nicotine dependence, other tobacco product, uncomplicated

== ENCOUNTER 2023-07-21 20:05 | Emergency (ER) | payer OTHER ==
[~2023-07-21] VITALS: Ht 157.4 cm; Wt 77.1 kg
[~2023-07-21 20:05] MED LIST changes: +PROVENTIL HFA6.7 GM INH; +SYMB80 INH
[2023-07-21 20:46] LABS: BILIRUBIN Negative (Negative); BLOOD Negative (Negative); CLARITY Clear (Clear); COLOR Yellow (Yellow); GLUCOSE Negative (Negative); KETONE Trace (Negative); LEUKO ESTERASE Negative (Negative); NITRITE Negative (Negative); PH 6.5 (4.5-8.0); SPECIFIC GRAVITY >= 1.030 (1.001-1.030)
[2023-07-21 20:58] LABS: MUCOUS 3+; RBC 0-2 rbc/hpf (0-2); WBC 0-2 wbc/hpf (0-5)
[2023-07-21] MEDS ORDERED: Ketorolac Tromethamine 60 MG/2 ML VIAL IM ONE (23:05)
[2023-07-21] MEDS ORDERED: METHOCARBAMOL500 M1 PO (23:40)
[2023-07-21] MEDS ORDERED: NAPROXEN250 MG PO (23:40)
== END 2023-07-21 23:58 | disposition home or self-care (01) ==
LOC: ED 20:05
PROVIDERS: Internal Medicine
DX: M54.50 Low back pain, unspecified (principal); I10 Essential (primary) hypertension; J45.909 Unspecified asthma, uncomplicated; Z90.11 Acquired absence of right breast and nipple

== ENCOUNTER 2024-03-15 10:27 | Emergency (ER) | payer SELFPAY ==
[~2024-03-15] VITALS: Ht 154.9 cm; Wt 77.1 kg
[~2024-03-15 10:27] MED LIST changes: +METHOCARBAMOL500 M1 PO; +NAPROXEN250 MG PO
[2024-03-15] MEDS ORDERED: AMOX-CLAV 875-1 EACH PO (11:29)
[2024-03-15] MEDS ORDERED: IBUPROFEN 800 MG TAB PO ONE (11:30)
== END 2024-03-15 13:27 | disposition home or self-care (01) ==
LOC: ED 10:27
DX: J02.9 Acute pharyngitis, unspecified (principal); I10 Essential (primary) hypertension; J45.909 Unspecified asthma, uncomplicated; Z98.890 Other specified postprocedural states